=== PATIENT | male | born 2000 | race American Indian/Alaskan Native ===

== ENCOUNTER 2022-07-21 21:46 | Emergency (ER) | payer SELFPAY ==
[2022-07-21 22:53] VITALS: BP 131/67
--- NOTE | 2022-07-22 01:23 | XRay Report ---
LEFT HAND 2 VIEWS 0046 INDICATION: HAND INJURY COMPARISON: None available. FINDINGS: No fractures or dislocations are seen. Signer Name: Davonte Gottlieb MD Signed: 07/22/2022 1:18 AM Workstation Name: [id number]
== END 2022-07-22 03:55 | disposition left against medical advice (07) ==
LOC: ED 21:46
DX: M79.642 Pain in left hand (principal); Z53.21 Procedure and treatment not carried out due to patient leaving prior to being seen by health care provider; W22.8XXA Striking against or struck by other objects, initial encounter; Y93.89 Activity, other specified; Y92.89 Other specified places as the place of occurrence of the external cause; Y99.8 Other external cause status